=== PATIENT | male | born 1955 | race Caucasian/White ===

== ENCOUNTER → 2023-03-22 | Outpatient (CLI) | payer BC, MEDICARE, OTHER | END | disposition home or self-care (01) | LOC: RADNMMAIN 09:57 | PROVIDERS: ATTEND Internal Medicine | DX: Z53.9 Procedure and treatment not carried out, unspecified reason (principal) ==

== ENCOUNTER → 2023-05-11 | Outpatient (CLI) | payer BC ==
[~2023-05-11] MED LIST: REGADENOSON 0.4 MG/5 ML SYRINGE IV ONE
--- NOTE | 2023-05-11 13:01 | NM ---
EXAMINATION TYPE: NM stress lexiscan cardiolite DATE OF EXAM: 05/11/2023 COMPARISON: NONE CLINICAL INDICATION: Male, 68 years old with history of R79.89 ABNORMAL BLOOD CHEMISTRY; TECHNIQUE: After the intravenous administration of 9.4 mCi Tc 99m Sestamibi - Cardiolite resting SPE CT images acquired 45 minutes post injection. The patient received 0.4mg Lexiscan, 25.4 mCi Tc 99m Sestamibi - Stress images obtained [address] injection FINDINGS: Review of stress and rest SPECT images demonstrates no distinct perfusion abnormality. Gated analysi s shows normal wall motion with an estimated left ventricular ejection fraction of 68 %. IMPRESSION: No scintigraphic evidence for reversible ischemia.
--- NOTE | 2023-05-11 13:08 | CA ---
Lexiscan Nuclear Stress Test Report Name: Aman Reilly Exam Date: 05/11/2023 10:24 Exam Location: [place] Stress Ht (in): 68 Wt (lb): 150 BSA: 1.81 Ordering Phys: Ester Judge Referring Phys: Ester Judge Technologist: William Hernandez Age: 68 Gender: M : 1955 Procedure CPT: Indications: R79.89 ABNORMAL BLOOD CHEMISTRY ICD-10 Codes: Patient History: Medications: SEE CHART Meds past 24 hrs: Pretest Chest Pain: STRESS TEST Lexiscan Protocol Exercise Duration (min:sec): 02:[address] Depressions (mm): Angina Score: Brizuela Score: Resting HR (bpm): 60 Peak HR (bpm): 90 Resting BP (mmHg): 145 / 83 Peak BP (mmHg): 107 / 69 MPHR: 154 Target HR: 131 % MPHR: 58 METS: 1.0 Total Dose: Peak Dose: Atropine: Double Product: 9630 BP Response: Stress Termination: PROTOCOL COMPLETE Stress Symptoms: NO SYMPTOMS Stress Summary: ECG ANALYSIS Resting ECG: Sinus rhythm. Normal conduction. No arrhythmias. Normal repolarization. Stress ECG: No ECG changes from baseline with Lexiscan infusion. CONCLUSIONS No ECG evidence of ischemia with Lexiscan infusion. Nuclear test results to follow. Dr. Princess Gilman MD (Electronically Signed) Final Date: 11 May 2023 13:07
== END | disposition home or self-care (01) ==
LOC: RADNMMAIN 08:51
PROVIDERS: ATTEND Nurse Practitioner Family
DX: R79.89 Other specified abnormal findings of blood chemistry (principal)
CPT/HCPCS: 93017; 78452; A9500